=== PATIENT | male | born 1970 | race African-American/Black ===

== ENCOUNTER 2022-10-09 15:52 | Emergency (ER) | payer OTHER ==
[~2022-10-09] VITALS: Ht 185.4 cm; Wt 109.1 kg
[~2022-10-09 15:52] MED LIST: CARI350T PO
[2022-10-09 16:06] VITALS: BP 148/93; PULSE 104; RESP 18; TEMP 98.6
[2022-10-09] MEDS ORDERED: IBUPROFEN 600 MG TABLET PO ONE (20:00)
[2022-10-09] MEDS ORDERED: LIDOCAINE 1% 10 ML VIAL SQ ONE (20:00)
[2022-10-09] MEDS ORDERED: HYDR-4072 PO (21:19)
[2022-10-09 21:39] LABS: SPECIMENTYPE,BODY FLUID SYNOVIAL
[2022-10-09 22:37] LABS: APPEARANCE,SPUN,BODY FLUID CLEAR (CLEAR); APPEARANCE,UNSPUN,BODY FLUID CLOUDY (CLEAR); BASOPHILS,BODY FLUID 0 %; COLOR,BODY FLUID YELLOW (LT YELLOW); EOSINOPHILS,BF (ANAL) 0 %; LYMPHOCYTES,BODY FLUID 0 %; MONOCYTES,BODY FLUID 20 %; NEUTROPHILS,BODY FLUID 80 %; TOTAL VOLUME,BODY FLUID 3 mL; WBC, BODY FLUID 28900 /cu. mm.
== END 2022-10-09 21:30 | disposition home or self-care (01) ==
LOC: EMS 16:32
DX: S83.91XA Sprain of unspecified site of right knee, initial encounter (principal); M25.461 Effusion, right knee; F17.210 Nicotine dependence, cigarettes, uncomplicated; Z98.890 Other specified postprocedural states; X50.3XXA Overexertion from repetitive movements, initial encounter; Y93.89 Activity, other specified; Y92.89 Other specified places as the place of occurrence of the external cause; Y99.0 Civilian activity done for income or pay
CPT/HCPCS: 99284; 10160; 87205 ×2; 89051; 87075; 87070; 73562; J3490; 29530

== ENCOUNTER 2023-05-01 11:21 | Emergency (ER) | payer OTHER ==
[~2023-05-01] VITALS: Ht 185.4 cm; Wt 109.0 kg
[~2023-05-01 11:21] MED LIST changes: +HYDR-4072 PO
[2023-05-01 11:36] VITALS: TEMP 98.2
[2023-05-01] MEDS: LIDOCAINE 1% 10 ML VIAL ID ONE (15:00)
[2023-05-01] MEDS ORDERED: CYCL-309 PO (15:01)
[2023-05-01] MEDS ORDERED: HYDR25TA2 PO (15:01)
[2023-05-01] MEDS ORDERED: [UNRECOGNIZED DRUG - CODE] PO (15:01)
[2023-05-01] MEDS ORDERED: TAMS0.4C94 PO (15:01)
[2023-05-01] MEDS ORDERED: SILD100T71 PO (15:01)
[2023-05-01] MEDS ORDERED: AMLO5TAB66 PO (15:01)
[2023-05-01 15:15] LABS: SPECIMENTYPE,BODY FLUID SYNOVIAL
[2023-05-01 16:08] LABS: APPEARANCE,SPUN,BODY FLUID HAZY (CLEAR); APPEARANCE,UNSPUN,BODY FLUID TURBID (CLEAR)
[2023-05-01 16:09] LABS: COLOR,BODY FLUID PINK (LT YELLOW); TOTAL VOLUME,BODY FLUID 20 mL; WBC, BODY FLUID 20125 /cu. mm.
[2023-05-01 16:10] LABS: BASOPHILS,BODY FLUID 0 %; CRYSTALS, SYNOVIAL FLUID None Seen (None Seen); EOSINOPHILS,BF (ANAL) 0 %; LYMPHOCYTES,BODY FLUID 0 %; MONOCYTES,BODY FLUID 15 %; NEUTROPHILS,BODY FLUID 85 %
[2023-05-01 16:55] VITALS: BP 131/91; PULSE 74; RESP 18
== END 2023-05-01 17:07 | disposition home or self-care (01) ==
LOC: EMS 11:21
DX: M25.461 Effusion, right knee (principal); F17.210 Nicotine dependence, cigarettes, uncomplicated
CPT/HCPCS: 99284; 20611; 87205; 89051; 89060; 87075; 87070; 73562; J3490